=== PATIENT | female | born 2005 | race Two or more races ===

== ENCOUNTER 2024-11-29 21:32 | Observation (INO) | payer MEDICAID, SELFPAY ==
[2024-11-29] VITALS (26 sets, daily range): BP systolic 124; BP diastolic 67; PULSE 69–108; RESP 18–99; TEMP 36.7; O2SAT 94–100; BMI 28.8
--- NOTE | 2024-11-29 22:32 | XR_ITS ---
Examination: Biophysical profile, ultrasound Date and time of exam: November 29, 2024 at 10:43 PM INDICATIONS: Decreased movement today Technique: Multiple transabdominal sonographic images of the pelvis abdomen obtained. Attention is directed to the breathing movement, gross body movement, amniotic fluid volume and tone. Findings: Amniotic fluid index 7.6 cm Total biophysical profile is 8 of 8. breathing movement is 2. Gross body movement is 2. tone is 2. Qualitative amniotic fluid volume is 2 Impression: Biophysical profile is 8 of 8.
== END 2024-11-30 00:06 | disposition home or self-care (01) ==
PROVIDERS: Admitting Provider Obstetrics & Gynecology; Visit Provider Obstetrics & Gynecology
DX: O36.8130 Decreased fetal movements, third trimester, not applicable or unspecified (principal); Z3A.41 41 weeks gestation of pregnancy
CPT/HCPCS: 59025; 59899; 76819

== ENCOUNTER 2024-12-02 00:15 | Inpatient (IN) | payer MEDICAID, SELFPAY ==
[2024-12-02] VITALS (294 sets, daily range): BP systolic 81–137; BP diastolic 42–94; PULSE 81–151; RESP 16–100; TEMP 36.7–38.8; O2SAT 67–100; BMI 29.0
[2024-12-02] MEDS: RINGERS LACTATED 1000 ML 1,000 ML 100 ML IV ×2 (01:31→12:40)
[2024-12-02 01:35] LABS: Basophils % (Auto) 0 % (0-2.5); Eosinophils # (Auto) 0.1 Thou/mm3 (0.0-0.5); Eosinophils % (Auto) 1 % (0-10); Hematocrit 33.9 % (36.0-46.0); Immature Granulocytes % (Auto) 0 % (0-0); Immature Granulocytes Auto 0.07 Thou/mm3 (0.00-0.00); Lymphocytes # (Auto) 2.9 Thou/mm3 (1.0-4.8); Lymphocytes % (Auto) 18 % (10-50); Mean Corpuscular HGB Conc 32.4 g/dl (31.0-37.0); Mean Corpuscular Hemoglobin 27.5 pg (25.0-35.0); Mean Corpuscular Volume 85 fL (80-100); Monocytes # (Auto) 1.2 Thou/mm3 (0.0-0.8); Monocytes % (Auto) 7 % (0-12); Neutrophils # (Auto) 12.3 Thou/mm3 (1.8-7.7); Neutrophils % (Auto) 74 % (37-80); Nucleated Red Blood Cell % 0 /100 WBC (0); Platelet Count 299 Thou/mm3 (140-440); RDW Standard Deviation 41.6 fL (36.4-46.3); White Blood Count 16.7 Thou/mm3 (4.5-11.0)
[2024-12-02] MEDS: Ampicillin Inj 2,000 MG in SODIUM CHLORIDE 0.9% (POP) 100 ML 200 MG IV (01:36)
--- NOTE | 2024-12-02 01:44 | ESHP_ITS ---
Documentation for date of: 12/02/24 OB Labor/Induct. HPI History of Present Illness Chief complaint: Labor : 1 Para: 0 Date of last menstrual period: 02/01/24 DOC: 11/21/24 Gestational Age (weeks): 41 Gestational Age (days): 3 Gestational age based on last menstrual period: 43 History of present illness: Patient is a 19-year-old G1, P0 at 41-3/7 weeks presented in early labor to triage around 1 in the morning 3 cm dilated. She declined induction of labor before now. Shobha Bassett CNM is her PNC provider at [facility] [place] History of Present Dating criteria: LMP confirmed by 1st trimester US Adequate Care: Yes Ultrasounds: normal mid trimester US Obstetrical complications: other (Postdates) Medical complications: none Labs Maternal Blood Type: A Pos Labs: Positive: Rubella Titre and Group Beta Strep and Negative: RPR, Hepatitis B, HIV, Chlamydia and Gonorrhea Review of Systems Constitutional Comments: Patient reports good movement no loss of fluids no vaginal bleeding and some painful contractions Meds Home Medications and Allergies Home Medications ?Medication ?Instructions ?Recorded ?Confirmed ?Type cetirizine 10 mg tablet (24Hour 10 mg PO QDAY 12/02/24 12/02/24 History Allergy) ferrous sulfate 325 mg (65 mg 325 mg PO BID 12/02/24 0 12/02/24 History iron) tablet vits no.130-ferrous fum 1 tab PO DAILY 12/02/24 History 27 mg iron-folic acid 800 mcg tablet ( Vitamin) Allergies Allergy/AdvReac Type Severity Reaction Status Date / Time shrimp Allergy Intermediate Hives to Verified 12/02/24 00:43 face and chest. OB Exam Physical Exam Vital signs: Temp Pulse Resp BP 98.3 F 91 20 122/68 12/02/24 00:46 12/02/24 00:40 12/02/24 00:40 12/02/24 00:40 Narrative: Patient is /-2 by OB triage exam Detailed Labor and Delivery Exam Effacement (%): 70 Cervix position: mid station: -2 Presentation: Vertex Membranes: intact Baseline heart rate: 140 monitor accelerations: 15x15 monitor decelerations: None FCI variability: Average (6-10) OB Results Labs 12/02/24 01:10 OB Assessment & Plan Assessment and Plan (1) Post-dates : Status: Acute Assessment and plan: Admit in early labor (2) Mother positive for group B Streptococcus colonization: Status: Acute Assessment and plan: Start ampicillin Additional Plan Induction method: none Plan: anticipate NVD and GBS prophylaxis tx Additional Plan Comment: Patient is 3 cm on admission. If she does not progress we will consider Pitocin augmentation. (1) Post-dates Qualifiers: Post-term type: 40-42 weeks gestation Qualified Code(s): O48.0 - Post-term
[2024-12-02 02:08] LABS: Syphilis Nonreactive (Nonreactive)
--- NOTE | 2024-12-02 03:26 | PD.LDPN ---
Documentation for date of: 12/02/24 OB Labor Progress Note Pain Control Pain control: tolerating well Comments: Considering epidural Pelvic Exam Dilation (cm): 5 Effacement (%): 70 station: -2 Amniotic membrane status: Intact Comments: AROM clear fluid 3:20 AM FSE placed Contractions Monitor mode: External Contraction frequency: Every 2 minutes without Pitocin Contraction intensity: Moderate Status status: Category l Comments: Periods of category 2. AROMed to clear fluid. FSE placed now category 1. Keep patient on monitor and continue to evaluate tracing Assessment and Plan Assessment: active labor Plan OB labor note: continuous present management Comments: Patient considering epidural placement. Second dose of ampicillin due soon
[2024-12-02] MEDS: fentaNYL CIT INJ 50 mCg/ML AMP 2ML 100 MCG IV ×2 (03:46→04:51)
[2024-12-02] MEDS: Ampicillin Inj 1,000 MG in SODIUM CHLORIDE 0.9% (Popper) 50 ML 50 MG IV ×6 (04:07→23:57)
[2024-12-02 07:25] LABS: Amphetamine/Metham Scrn,Ur OB Negative (Negative); Benzoylecgonine Screen, Ur OB Negative (Negative); Opiate Screen,Urine OB Negative (Negative); THC Screen,Urine OB Negative (Negative)
[2024-12-02] MEDS: ACETAMINOPHEN IVPB 1,000 MG/100 ML VIAL 250 MG IV (11:02)
[2024-12-02] MEDS: GENTAMICIN/NS 80 MG IVPB 80 MG in PRE-MIXED 1 BAG 50 MG IV ×2 (11:43→23:05)
[2024-12-02] MEDS: ceFAZolin/D5W 2 GM IV 2 GM/100 ML BAG IV (17:53)
[2024-12-02] MEDS: FAMOTIDINE INJ 10 MG/ML VIAL 2 ML 20 MG IV (17:53)
[2024-12-02] MEDS: METOCLOPRAMIDE INJ 5 MG/ML VIAL 2 ML 10 MG IVP (17:54)
--- NOTE | 2024-12-02 18:43 | ESOP_ITS ---
Operative Note - EPIC CUPID ANALYST Procedure Date of procedure: 12/02/24 Procedure Performed: Primary low-transverse section Indication: 19-year-old G1, P0 at 41 weeks and 4 days Failure to descend Chorioamnionitis Anesthesia type: Spinal Procedure description: Informed consent was obtained and the patient was taken to the operating room.? Identity was confirmed by double identifiers and she was placed on the operating table.? Spinal anesthesia was administered and she was positioned in the supine position.? The abdomen and perineum were prepped in the usual sterile fashion and a Duron catheter was placed to continuous drainage.? Sterile drapes were applied.? The incision site was tested for adequacy of anesthesia.? A Pfannenstiel skin incision was made with a scalpel and carried to the subcutaneous fat up to the rectus fascia.? The rectus fascia was incised on either side of the midline and the incisions were extended bilaterally.? The fascia was gently dissected off the ventral surface of the rectus muscle both superiorly and inferiorly.? The rectus bellies were gently in the midline and the peritoneum was identified and entered bluntly using the surgeon's finger.? The peritoneal opening was now stretched to create an adequate opening for access to the uterus.? [place] O-ring retractor was placed for adequate visualization.? The anterior surface of the uterus was palpated.? The bladder reflection was identified and a Yanna Patrick low transverse uterine incision was made in the lower uterine segment taking care to avoid the bladder.? Uterine entry was accomplished bluntly and the opening was stretched to create adequate room.? The amniotic membranes were now ruptured and meconium stained amniotic fluid was released.? The fetus was noted to be in the vertex position.? The head was gently elevated out of the maternal pelvis and single loop of nuchal cord was found around the neck.? The cord was released and the rest of the shoulders and body were delivered by gentle fundal pressure.? Umbilical cord was doubly clamped, divided and the infant was handed over to the waiting team.? Cord gas samples were obtained.? The placenta was delivered by gentle traction on the umbilical cord.? The interior of the uterus was now thoroughly cleaned of all blood and debris and membranes.? The hysterotomy angles were grasped by a pair of Allis clamps and the hysterotomy was closed using 1 Monocryl suture in 2 layers.? The first layer was used to approximate the muscle in a running locked fashion, the second layer was used to approximate the thickness of the myometrium?and uterine serosa in an imbricated manner.? Once the repair was completed the hysterotomy was inspected and noted to be adequately hemostatic.?? The hysterotomy was once again inspected and hemostasis was noted to be satisfactory.? The [place] retractor was now removed.? The peritoneal edges were re approximated.? The rectus muscles were re approximated.? The rectus fascia was now repaired using 0 Vicryl suture in a running fashion.? The subcutaneous layer was now copiously irrigated using warm normal saline.? All bleeding points were cauterized using the Bovie.? The subcutaneous fat was closed using 3-0 Vicryl.? The skin was closed using 4-0 Monocryl in a subcuticular fashion.? The skin was cleaned and a sterile dressing was applied.? The patient was now undraped, the abdomen and back were thoroughly cleaned and she was transferred to the recovery room in a stable and awake condition.? The patient tolerated the entire procedure well.? No complications were encountered.? All instrument, sponge and lap counts were correct x2. Specimen: none Estimated blood loss (ml): 700 Findings: Thick meconium on hysterotomy Complications: none Diagnosis Discharge Diagnosis (1) Mother positive for group B Streptococcus colonization: Status: Acute (2) Post-dates : Status: Acute (3) Abdominal pain: Status: Acute (4) delivery delivered: Status: Acute (5) Chorioamnionitis: Status: Acute (6) Failure of descent in labor, delivered, current hospitalization: Status: Acute Problem List Completed Was Problem List Reviewed/Reconciled?: Yes (2) Post-dates Qualifiers: Post-term type: 40-42 weeks gestation Qualified Code(s): O48.0 - Post-term
[2024-12-02] MEDS: SODIUM CHLORIDE 0.9% 1000 ML 1,000 ML 999 ML IV (19:00)
[2024-12-02] MEDS: OXYTOCIN in NS 20 units 20 UNIT/1,000 ML BAG 125 UNIT IV (19:00)
[2024-12-02] MEDS: KETOROLAC INJ 30 MG/ML VIAL IVP (19:53)
[2024-12-02] MEDS: CLINDAMYCIN 900MG IVPB 900 MG in PRE-MIXED 1 BAG 50 MG IV (21:46)
[2024-12-03 00:02] VITALS: BP 115/73; PULSE 87; RESP 16; TEMP 37.1; O2SAT 97
[2024-12-03] MEDS: RINGERS LACTATED 1000 ML 1,000 ML 125 ML IV (01:53)
[2024-12-03] MEDS: KETOROLAC INJ 30 MG/ML VIAL IVP ×3 (01:53→13:56)
[2024-12-03 03:55] VITALS: BP 100/64; PULSE 87; RESP 18; TEMP 36.8; O2SAT 96
[2024-12-03] MEDS: Ampicillin Inj 1,000 MG in SODIUM CHLORIDE 0.9% (Popper) 50 ML 50 MG IV ×2 (04:02→07:24)
[2024-12-03 04:53] LABS: Basophils # (Auto) 0.1 Thou/mm3 (0.0-0.2); Basophils % (Auto) 0 % (0-2.5); Eosinophils % (Auto) 0 % (0-10); Hematocrit 27.2 % (36.0-46.0); Hemoglobin 9.1 g/dL (12.0-16.0); Immature Granulocytes % (Auto) 1 % (0-0); Immature Granulocytes Auto 0.15 Thou/mm3 (0.00-0.00); Lymphocytes # (Auto) 1.6 Thou/mm3 (1.0-4.8); Lymphocytes % (Auto) 7 % (10-50); Mean Corpuscular HGB Conc 33.5 g/dl (31.0-37.0); Mean Corpuscular Hemoglobin 28.3 pg (25.0-35.0); Mean Corpuscular Volume 85 fL (80-100); Monocytes # (Auto) 1.3 Thou/mm3 (0.0-0.8); Monocytes % (Auto) 6 % (0-12); Neutrophils # (Auto) 19.5 Thou/mm3 (1.8-7.7); Neutrophils % (Auto) 86 % (37-80); Nucleated Red Blood Cell % 0 /100 WBC (0); Platelet Count 223 Thou/mm3 (140-440); RDW Standard Deviation 43.3 fL (36.4-46.3); Red Blood Count 3.22 Miln/mm3 (4.00-5.20); White Blood Count 22.6 Thou/mm3 (4.5-11.0)
[2024-12-03] MEDS: CLINDAMYCIN 900MG IVPB 900 MG in PRE-MIXED 1 BAG 50 MG IV ×3 (05:47→22:04)
[2024-12-03 07:00] VITALS: BP 114/75; PULSE 91; RESP 20; TEMP 36.7; O2SAT 96
--- NOTE | 2024-12-03 07:55 | ESPR_ITS ---
Subjective Subjective Interval history: Patient denies any problem or complaint. Urine output adequate with Duron catheter recently removed. She has yet to void. She does not feel the urge to void. She is passing flatus. She is tolerating a regular diet without nausea or vomiting. She denies any excessive vaginal bleeding or dizziness or lightheadedness. She has got adequate pain relief with Toradol. She denies any chest pain palpitations shortness of breath or lower extremity pain. Exam Vital Signs Temp Pulse Resp BP Pulse Ox O2 Del Method 98.0 F 91 20 114/75 96 Room Air 12/03/24 07:00 12/03/24 07:00 12/03/24 07:00 12/03/24 07:00 12/03/24 07:00 12/03/24 07:00 Routine Respiratory Exam Comments: Clear to auscultation bilaterally Routine Cardiovascular Exam Comments: Regular rate and rhythm Routine Abdominal Exam Comments: Dressing dry and intact. Fundus is firm. Nondistended. Routine Extremities Exam Comments: Nontender Objective Labs 12/03/24 04:30 Labs: Laboratory Results - last 24 hr 12/03/24 04:30 WBC 22.6 H D RBC 3.22 L Hgb 9.1 L Hct 27.2 L MCV 85 MCH 28.3 MCHC 33.5 RDW Std Deviation 43.3 Plt Count 223 D Neut % (Auto) 86 H Lymph % (Auto) 7 L [place] % (Auto) 6 Eos % (Auto) 0 Baso % (Auto) 0 Neut # (Auto) 19.5 H Lymph # (Auto) 1.6 [place] # (Auto) 1.3 H Eos # (Auto) 0.0 Baso # (Auto) 0.1 Immature Gran # (Auto) 0.15 H Absolute Nucleated RBC 0.00 Immature Gran % 1 H Nucleated RBC % 0 Assessment & Plan Problem List (1) delivery delivered: Status: Acute (2) Chorioamnionitis: Status: Acute (3) Endometritis following delivery: Status: Acute Assessment and plan: Continue triple antibiotics until discharge Clindamycin 900 mg IV q8h Gentamycin q 24h dosing pharmacy to dose and manage peak and trough Increase Ampicillin to 2g IVPB q 6h. Assessment Comment Assessment comment: Monitor for Urinary Retention and Replace Duron if needed Encourage Ambulation Support. Possible Discharge Home tomorrow on oral antibiotics for 5 days if remains afebrile
[2024-12-03] MEDS: DOCUSATE SOD 100 MG CAPSULE PO (08:22)
[2024-12-03] MEDS: Gentamicin 320 MG in SODIUM CHLORIDE 0.9% 100 ML 108 MG IV (09:17)
[2024-12-03 12:00] VITALS: BP 103/65; PULSE 93; RESP 16; TEMP 36.7
[2024-12-03] MEDS: Ampicillin Inj 2,000 MG in SODIUM CHLORIDE 0.9% (POP) 100 ML 100 MG IV ×2 (12:12→19:22)
--- NOTE | 2024-12-03 12:41 | PC.NURSE ---
pt up to the bathroom with minimal assistance, voided freely 600 cc, pericare done, bed linens and gown changed. patient sitting in chair.
--- NOTE | 2024-12-03 14:30 | PC.SS ---
BIOLOGY TUTOR conducted bedside contact with the patient to address nursing referral indicating patient was positive for THC during .? Toxicology screening at admission negative.? BIOLOGY TUTOR introduced self and role.? Present with patient was Lux NOLEN.? Patient gave consent for FOB to be present during discussion.? BIOLOGY TUTOR discussed basis of referral.? Patient confirmed recreational use of THC.? Patient stated that during time of use, unaware of .? Upon confirmation of , patient ceased use.? Patient states not planning to continue recreational use of THC.? Infant, Wiliam; is the patient?s first child. ? was delivered via .? OB services provided by [facility].? Patient confirms consistency with OB appointments.? Patient is aligned with WIC.? Patient is not receiving SNAP or TANF.? Patient denies history of alcohol/drug abuse.? Patient denies CWS intervention.? Patient denies episodes of domestic violence.? Patient confirmed history of anxiety/depression.? Patient states no history of involvement with mental health.? Patient denies history of self-harm behaviors.? Patient denies impairment with daily functioning.? Prior to patient employed at [employer].? Patient plans on resuming employment.? Patient has access to appropriate supplies and equipment; to include a car seat.? FOB will provide transportation upon discharge.? Patient describes possessing support system consisting of FOB, parents and extended family.? BIOLOGY TUTOR provided the patient with community resources to include Parenting Network and Warm Line.? No further intervention required at this time, oncology social work will be available to address any further concerns.? BIOLOGY TUTOR updated bedside nurse.?
[2024-12-03 16:45] VITALS: BP 100/60; PULSE 98; RESP 16; TEMP 36.4
[2024-12-03] MEDS: ACETAMINOPHEN 325 MG TABLET 650 MG PO (16:50)
[2024-12-03 20:28] VITALS: BP 101/65; PULSE 98; RESP 16; TEMP 36.8; O2SAT 97
[2024-12-03] MEDS: IBUPROFEN TAB 400 MG TABLET 800 MG PO (22:05)
[2024-12-04 00:04] LABS: Gentamicin, Random 0.8 mcg/mL (4.0-10.0)
[2024-12-04] MEDS: Ampicillin Inj 2,000 MG in SODIUM CHLORIDE 0.9% (POP) 100 ML 100 MG IV ×4 (01:24→19:36)
[2024-12-04 03:41] VITALS: BP 101/67; PULSE 79; RESP 16; TEMP 36.7; O2SAT 97
[2024-12-04 05:36] LABS: Basophils # (Auto) 0.1 Thou/mm3 (0.0-0.2); Basophils % (Auto) 0 % (0-2.5); Eosinophils # (Auto) 0.1 Thou/mm3 (0.0-0.5); Eosinophils % (Auto) 1 % (0-10); Hematocrit 23.6 % (36.0-46.0); Immature Granulocytes % (Auto) 1 % (0-0); Immature Granulocytes Auto 0.21 Thou/mm3 (0.00-0.00); Lymphocytes # (Auto) 2.6 Thou/mm3 (1.0-4.8); Lymphocytes % (Auto) 12 % (10-50); Mean Corpuscular HGB Conc 33.1 g/dl (31.0-37.0); Mean Corpuscular Hemoglobin 28.4 pg (25.0-35.0); Mean Corpuscular Volume 86 fL (80-100); Monocytes # (Auto) 1.1 Thou/mm3 (0.0-0.8); Monocytes % (Auto) 5 % (0-12); Neutrophils # (Auto) 16.9 Thou/mm3 (1.8-7.7); Neutrophils % (Auto) 81 % (37-80); Nucleated Red Blood Cell % 0 /100 WBC (0); Platelet Count 233 Thou/mm3 (140-440); RDW Standard Deviation 44.9 fL (36.4-46.3); Red Blood Count 2.75 Miln/mm3 (4.00-5.20); White Blood Count 20.9 Thou/mm3 (4.5-11.0)
[2024-12-04 05:45] LABS: Hemoglobin 7.8 g/dL (12.0-16.0)
[2024-12-04 06:04] LABS: Alanine Aminotransferase 9 U/L (10-49); Albumin, Serum 2.6 gm/dL (3.5-5.0); Albumin/Globulin Ratio 1.4 (1.2-2.2); Alkaline Phosphatase 135 U/L (46-116); Anion Gap 7 (7-16); Aspartate Amino Transferase 23 U/L (0-34); BUN/Creatinine Ratio 12 Ratio (12-20); Bilirubin,Total 0.3 mg/dL (0.3-1.2); Blood Urea Nitrogen 7 mg/dL (9-23); Calcium 7.9 mg/dL (8.3-10.6); Carbon Dioxide 23.6 mMol/L (20.0-31.0); Chloride 110 mMol/L (98-107); Creatinine (Component) 0.6 mg/dL (0.6-1.3); Estimated Creatinine Clearance 149.8 mL/min (>60); Globulin 1.9 gm/dL (2.3-3.5); Glucose 77 mg/dL (74-106); Osmolality,Calculated 278 (275-295); Potassium 3.9 mMol/L (3.4-5.1); Sodium 141 mMol/L (136-145); Total Protein 4.5 gm/dL (5.7-8.2); eGFR > 60 See Note
[2024-12-04] MEDS: IBUPROFEN TAB 400 MG TABLET 800 MG PO ×2 (06:09→14:31)
[2024-12-04] MEDS: CLINDAMYCIN 900MG IVPB 900 MG in PRE-MIXED 1 BAG 50 MG IV ×3 (06:09→22:22)
[2024-12-04 07:20] VITALS: BP 103/66; PULSE 85; RESP 18; TEMP 36.9; O2SAT 96
[2024-12-04] MEDS: SIMETHICONE 80 MG CHEW PO (07:22)
--- NOTE | 2024-12-04 08:11 | ESPR_ITS ---
Subjective Subjective Interval history: Patient is postop day #2 status post primary section for arrest of descent. Patient pushed and had an attempted vacuum and ended up with a C- section by Dr. Wasserman. The baby weighed 9 pounds 4 ounces at . The patient spiked a fever post delivery and is on amp /gent and clinda. The baby is in the NICU on antibiotics. Patient's hemoglobin started at 11 and has drifted down to 7.8. Today patient is resting comfortably in bed. She is tolerating a general diet and states her pain is well-controlled. She has not been febrile recently she denies heavy vaginal bleeding. She is breast and bottlefeeding. Exam Vital Signs Temp Pulse Resp BP Pulse Ox O2 Del Method 98.4 F 85 18 103/66 96 Room Air 12/04/24 07:20 12/04/24 07:20 12/04/24 07:20 12/04/24 07:20 12/04/24 07:20 12/04/24 07:20 Narrative Exam Patient is resting comfortably in bed in no apparent distress appears slightly pale Routine Abdominal Exam Abdominal: Present soft and surgical scars (Incision clean dry and intact) Comments: Fundus firm nontender Objective Labs 12/04/24 04:40 12/04/24 04:40 Labs: Laboratory Results - last 24 hr 12/03/24 12/04/24 20:55 04:40 WBC 20.9 H RBC 2.75 L Hgb 7.8 L Hct 23.6 L MCV 86 MCH 28.4 MCHC 33.1 RDW Std Deviation 44.9 Plt Count 233 Neut % (Auto) 81 H Lymph % (Auto) 12 [place] % (Auto) 5 Eos % (Auto) 1 Baso % (Auto) 0 Neut # (Auto) 16.9 H Lymph # (Auto) 2.6 [place] # (Auto) 1.1 H Eos # (Auto) 0.1 Baso # (Auto) 0.1 Immature Gran # (Auto) 0.21 H Absolute Nucleated RBC 0.00 Immature Gran % 1 H Nucleated RBC % 0 Sodium 141 Potassium 3.9 Chloride 110 H Carbon Dioxide 23.6 Anion Gap 7 BUN 7 L Creatinine 0.6 Estim Creat Clear Calc 149.8 eGFR > 60 BUN/Creatinine Ratio 12 Glucose 77 Calculated Osmolality 278 Calcium 7.9 L Corrected Calcium 9.0 Total Bilirubin 0.3 AST 23 ALT 9 L Alkaline Phosphatase 135 H Total Protein 4.5 L Albumin 2.6 L Globulin 1.9 L Albumin/Globulin Ratio 1.4 Random Gentamicin 0.8 L Assessment & Plan Problem List (1) delivery delivered: Problem details: Continue current management. Ambulate. Follow CBC in the morning. Consider transfusion if Hgb drops to a 6. Status: Acute (2) Chorioamnionitis: Status: Acute (3) Endometritis following delivery: Problem details: Continue ampicillin, gentamicin, and clindamycin. Recheck hemoglobin in morning and check white count. Probable DC tomorrow. Status: Acute Time Spent With Patient Time: Total time spent is greater than 50% in coordination of care (as documented) at patient's floor/unit and/or counseling patient: Time with patient: less than 15 minutes
[2024-12-04] MEDS: Gentamicin 320 MG in SODIUM CHLORIDE 0.9% 100 ML 108 MG IV (09:17)
[2024-12-04] MEDS: DOCUSATE SOD 100 MG CAPSULE PO (09:17)
[2024-12-04 11:13] VITALS: BP 108/68; PULSE 70; RESP 18; TEMP 36.7; O2SAT 99
[2024-12-04 19:40] VITALS: BP 115/71; PULSE 85; RESP 17; TEMP 36.8; O2SAT 98
[2024-12-04] MEDS: HYDROcodone/APAP 5/325 TABLET 1 TAB PO (21:45)
[2024-12-04 23:20] VITALS: BP 110/71; PULSE 83; RESP 18; TEMP 36.6; O2SAT 99
[2024-12-05] MEDS: Ampicillin Inj 2,000 MG in SODIUM CHLORIDE 0.9% (POP) 100 ML 100 MG IV ×2 (01:55→07:48)
[2024-12-05] MEDS: CLINDAMYCIN 900MG IVPB 900 MG in PRE-MIXED 1 BAG 50 MG IV (06:18)
[2024-12-05 07:08] LABS: Basophils # (Auto) 0.1 Thou/mm3 (0.0-0.2); Basophils % (Auto) 0 % (0-2.5); Eosinophils # (Auto) 0.2 Thou/mm3 (0.0-0.5); Eosinophils % (Auto) 1 % (0-10); Immature Granulocytes % (Auto) 1 % (0-0); Immature Granulocytes Auto 0.25 Thou/mm3 (0.00-0.00); Lymphocytes # (Auto) 2.7 Thou/mm3 (1.0-4.8); Lymphocytes % (Auto) 15 % (10-50); Mean Corpuscular HGB Conc 32.6 g/dl (31.0-37.0); Mean Corpuscular Volume 86 fL (80-100); Monocytes # (Auto) 0.8 Thou/mm3 (0.0-0.8); Monocytes % (Auto) 4 % (0-12); Neutrophils # (Auto) 13.6 Thou/mm3 (1.8-7.7); Neutrophils % (Auto) 78 % (37-80); Nucleated Red Blood Cell # 0.02 Thou/mm3 (0.00-0.00); Nucleated Red Blood Cell % 0 /100 WBC (0); Platelet Count 302 Thou/mm3 (140-440); RDW Standard Deviation 44.3 fL (36.4-46.3); Red Blood Count 3.14 Miln/mm3 (4.00-5.20); White Blood Count 17.5 Thou/mm3 (4.5-11.0)
[2024-12-05 07:16] LABS: Hemoglobin 8.8 g/dL (12.0-16.0)
[2024-12-05 07:40] VITALS: BP 113/73; PULSE 88; RESP 17; TEMP 36.6; O2SAT 98
[2024-12-05] MEDS: HYDROcodone/APAP 5/325 TABLET 1 TAB PO (07:47)
[2024-12-05] MEDS: DOCUSATE SOD 100 MG CAPSULE PO (07:48)
--- NOTE | 2024-12-05 07:48 | PD.LDPPPRG ---
Subjective Subjective Interval history: Delivery type: Patient doing well this morning. No acute complaints. Ambulating, tolerating p.o. and voiding without difficulty. HTN/Pre-Eclampsia screen: No chest pain, shortness of breath, headache, visual changes, epigastric or right upper quadrant pain. Breast-feeding, lochia diminishing. Bowel: Flatus+/ BM+ Exam Vital Signs Temp Pulse Resp BP Pulse Ox O2 Del Method 97.9 F 83 18 110/71 99 Room Air 12/04/24 23:20 12/04/24 23:20 12/04/24 23:20 12/04/24 23:20 12/04/24 23:20 12/04/24 23:20 Constitutional Constitutional: no acute distress Routine HEENT Exam Head: Present normocephalic and atraumatic Eye: Present EOMI and PERRL ENT: Present mucous membranes moist Routine Neck Exam Neck: Present supple and trachea midline Routine Respiratory Exam Respiratory: Present chest non-tender, lungs clear, normal breath sounds and no resp distress Routine Cardiovascular Exam Cardiovascular: Present RRR Routine Abdominal Exam Abdominal: Present soft and normoactive bowel sounds Routine Extremities Exam Extremities: Present full ROM Routine Skin Exam Skin: Present intact, dry and warm Routine Neurological Exam Neurological: Present alert, oriented X3 and CN II-XII intact Routine Psychiatric Exam Psychiatric: Present normal affect and normal thought process Objective Labs 12/05/24 06:15 12/04/24 04:40 Labs: Laboratory Results - last 24 hr 12/05/24 06:15 WBC 17.5 H RBC 3.14 L Hgb 8.8 L Hct 27.0 L MCV 86 MCH 28.0 MCHC 32.6 RDW Std Deviation 44.3 Plt Count 302 D Neut % (Auto) 78 Lymph % (Auto) 15 [place] % (Auto) 4 Eos % (Auto) 1 Baso % (Auto) 0 Neut # (Auto) 13.6 H Lymph # (Auto) 2.7 [place] # (Auto) 0.8 Eos # (Auto) 0.2 Baso # (Auto) 0.1 Immature Gran # (Auto) 0.25 H Absolute Nucleated RBC 0.02 H Immature Gran % 1 H Nucleated RBC % 0 Assessment & Plan Problem List (1) delivery delivered: Status: Acute Assessment and plan: PPD/POD#2 1. Continue routine care 2. Transition to PO meds. 3. Encourage to ambulate/ breast-feed 4. Anticipate discharge home today. (2) Chorioamnionitis: Status: Acute (3) Endometritis following delivery: Status: Acute Time Spent With Patient Time: Total time spent is greater than 50% in coordination of care (as documented) at patient's floor/unit and/or counseling patient:
--- NOTE | 2024-12-05 07:49 | PD.LDDS ---
DS: Providers Provider Date of admission: 12/02/24 01:01 Primary care physician: Physician No Primary/Family Admitting Provider: Ana Kumari MD ([facility]) Attending Provider on Admission: Fabien Pope MD Consults: 12/02/24 18:56 Referral Routine Comment: Attending Provider on DC: Meliton Wasserman MD Discharging Provider: Meliton Wasserman MD DS: Diagnosis Discharge Diagnosis (1) Endometritis following delivery: Status: Acute (2) Failure of descent in labor, delivered, current hospitalization: Status: Acute (3) delivery delivered: Status: Acute Problem List Completed Was Problem List Reviewed/Reconciled?: Yes Summary/Hosp Course Brief History: Patient is a 19-year-old G1, P0 at 41-3/7 weeks presented in early labor to triage around 1 in the morning 3 cm dilated. She declined induction of labor before now. Shobha Bassett CNM is her PNC provider at [facility] Peripartum Data Procedures: Procedures Operation Date: 12/02/24 18:15 Actual Procedure Side Surgeon p in OB Not Applicable Meliton Wasserman MD Time Spent with Patient Time attestation: Total time spent providing and/or coordinating discharge services: Exam Vital Signs Temp Pulse Resp BP Pulse Ox O2 Del Method 97.9 F 83 18 110/71 99 Room Air 12/04/24 23:20 12/04/24 23:20 12/04/24 23:20 12/04/24 23:20 12/04/24 23:20 12/04/24 23:20 Discharge Plan Plan Patient Disposition: HOME (Self Care) Disposition Comment: Dr Wasserman in 1 wk for post op, Deng Bassett in 3 weeks for PP Patient condition on transfer: Stable Prescriptions/Referrals Prescriptions/Med Rec: New hydrocodone-acetaminophen 5-325 mg Tablet 1 tab PO Q6HR MDD 4 PRN (Reason: Patient rated pain 9 to 10) 5 Days Qty: 20 0RF docusate sodium 100 mg Capsule 100 mg PO QDAY 30 Days Qty: 30 0RF ibuprofen 400 mg Tablet 800 mg PO Q8HR PRN (Reason: Pain Scale 4-6 (Moderate) 10 Days Qty: 40 0RF amoxicillin-pot clavulanate 875-125 mg tablet 1 tab PO Q12H Qty: 10 0RF Continued ferrous sulfate 325 mg (65 mg iron) tablet 325 mg PO BID Patient Comments: TOME 1 TABLETA POR V A ORAL DOS VECES AL D A Vitamin 27 mg iron- 800 mcg tablet 1 tab PO DAILY Patient Comments: TOME 1 TABLETA POR V A ORAL TODOS LOS D cetirizine [24Hour Allergy] 10 mg tablet 10 mg PO QDAY Referrals: Meliton Wasserman MD [Physician] - No Primary/Family,Physician [Primary Care Provider] - Patient/Caregiver Discharge Instructions Education Materials: After Delivery [place] Concerns, Breast Care After , After a , Nutrition While , Understanding Depression, : Caring for Yourself, C Section Dc, Feel Healthy After Print Language: Icelandic Stand Alone Forms: Nikia Award Info., Patient Portal Info Letter, BENJI from Surgery Planned Discharge Date 12/05/24
== END 2024-12-05 11:00 | disposition home or self-care (01) | DRG 540 ==
LOC: S4SX 12:02 → S4NX 18:10
PROVIDERS: Obstetrics & Gynecology; Admitting Provider Obstetrics & Gynecology; Visit Provider Specialist
PROC: 10D00Z1 Extraction of Products of Conception, Low, Open Approach (ICD-10-PCS; CPT 59514; principal; 2024-12-02 18:00)
DX: O48.0 Post-term pregnancy (principal); O99.824 Streptococcus B carrier state complicating childbirth; Z37.0 Single live birth; Z3A.41 41 weeks gestation of pregnancy; O77.0 Labor and delivery complicated by meconium in amniotic fluid; O32.4XX0 Maternal care for high head at term, not applicable or unspecified; O86.12 Endometritis following delivery
CPT/HCPCS: 36415; 59409; 80053; 80170; 80307; 85025; 86780; 86850; 86900; 86901; 94762; A4649; J0131; J0290; J0689; J1580; J1885; J2210; J2274; J2371; J2405; J2590; J2765; J2795; J3010; J3490; J7030; J7050; J7120; S0077; A9270; J0736; J2270